=== PATIENT | male | born 1950 | race Caucasian/White ===

== ENCOUNTER 2023-03-24 07:40 | Emergency (ER) | payer MEDICARE, BC, SELFPAY ==
[2023-03-24] VITALS (17 sets, daily range): BP systolic 103–119; BP diastolic 66–86; PULSE 45–62; RESP 10–23; TEMP 36.6; O2SAT 84–100
--- NOTE | 2023-03-24 08:18 | DI.CT_ITS ---
Exam(s) CT ABDOMEN PELVIS W EXAM: CT ABDOMEN PELVIS W CLINICAL HISTORY: LLQ and suprapubic abd pain and tenderness TECHNIQUE: Imaging Protocol: Axial computed tomography images with coronal and sagittal reformatted images were created and reviewed CONTRAST MATERIAL: Intravenous: Omnipaque 350 Contrast volume:97 mL Oral: Yes COMPARISON: No exams were available for comparison FINDINGS: ABDOMEN: Lung Bases: The distal wires of a cardiac pacing device are seen. There is plate atelectasis in the lung bases. Liver: Normal density. No measurable mass. Portal, Superior Mesenteric, and Splenic Veins: Unremarkable. Gallbladder and Biliary Tract: No radiodense calculus or dilation. Pancreas: Normal density, no abnormal calcifications or inflammatory process. There is a 1 cm hyperde nse lesion in the tail of the pancreas. Spleen: Normal. Adrenals: No masses seen. Kidneys: Normal size, contour and axis. No radiodense stones or obstructive uropathy. No masses seen. Abdominal Aorta: Abdominal portion non-dilated. Atherosclerosis. Bowel: There is diverticulosis in the colon. There is bowel wall thickening and pericolonic inflamma tion in the sigmoid colon consistent with acute diverticulitis. No abscess or free air. There is no evidence of bowel obstruction. There is no evidence of appendicitis. The remainder of the bowel is unremarkable. Peritoneal Cavity: There is a trace amount of free fluid in the pelvis. No free air. Lymph Nodes: Within normal limits. Bones: Postsurgical changes are seen in the lower lumbar spine. Age-appropriate degenerative changes are seen in the lumbar spine. Grade 1 anterolisthesis of L4 on L5. Soft Tissues: There is a small fat containing umbilical hernia. PELVIS: Bladder: Symmetric distention, no gross wall thickening. Reproductive Organs: Unremarkable as visualized. Lymph Nodes: Within normal limits. Bones: Within normal limits for the patient's age. IMPRESSION: 1. Sigmoid diverticulitis without evidence of abscess or free air. 2. Indeterminate 1 cm hyperdensity in the tail of the pancreas. Nonemergent/outpatient CT or MRI of the pancreas is recommended for further evaluation. Unexpected findings RADIATION DOSE DELIVERED: 942.64mGy.cm Total DLP DATA REPOSITORY: All CT scans at this facility are submitted to the National Radiology Data Registry (NRDR) Dose Index Registry (DIR) with the [employer] ([employer]). RADIATION OPTIMIZATION: All CT scans at this facility use at least one of these dose optimization te chniques: automated exposure control; mA and/or kV adjustment per patient size (includes targeted exa ms where dose is matched to clinical indication); or iterative reconstruction.
[2023-03-24] MEDS: Omnipaque 350 MG/ML 50 ML BTL PO (08:27)
[2023-03-24] MEDS: Breeza Beverage 473 ML BTL 946 ML PO (08:28)
[2023-03-24 08:30] LABS: Abs Immature Grans 0.02 10^3/uL (0.0-0.06); Absolute Basophil Count 0.04 10^3/uL (0.0-0.2); Absolute Eosinophil Count 0.09 10^3/uL (0.0-0.7); Absolute Lymphocyte Count 0.69 10^3/uL (1.2-3.4); Absolute Monocyte Count 0.61 10^3/uL (0.1-0.8); Absolute Neutrophil Count 5.94 10^3/uL (1.2-6.7); Basophils % 0.5; Eosinophils % 1.2; HCT 41.4 % (40.0-50.0); HGB 13.7 g/dL (13.5-17.5); Immature Grans % 0.3; Lymphocytes % 9.3; MCH 32.8 pg (27.0-33.0); MCHC 33.1 % (32.0-36.0); MCV 99 fL (80-95); MPV 9.5 fL (8.0-11.0); Monocytes % 8.3; Neutrophils % 80.4; Platelet Count 189 10^3/uL (130-400); RBC 4.18 10^6/uL (4.36-5.78); RDW 12.9 % (11.8-14.1); WBC 7.39 10^3/uL (4.4-10.8)
[2023-03-24 08:31] LABS: Bilirubin Negative (Negative); Blood Trace-intact (Negative); Clarity Clear (Clear); Glucose Negative (Negative); Ketones Negative (Negative); Leukocyte Esterase Negative (Negative); Nitrite Negative (Negative); Specific Gravity 1.025 (1.005-1.025); Urobilinogen 0.2 mg/dL (Up to 0.2)
[2023-03-24 08:40] LABS: Bacteria Negative HPF (Negative); C & S Indicated? No; Casts Negative LPF (Negative); Crystals Negative HPF (Negative); Epithelial Cells Few HPF (Negative); Mucus Trace (Negative); RBC 0-2 HPF (0-2); WBC 0-2 HPF (0-5)
[2023-03-24 08:49] LABS: ALT 25 U/L (16-63); AST 23 U/L (15-37); Alkaline Phosphatase 71 U/L (46-116); Anion Gap 6.9 mmol/L (3-11); BUN 25 mg/dL (7-18); Bilirubin, Total 1.1 mg/dL (0.2-1.0); CO2 27.1 mmol/L (21.0-32.0); Chloride 106 mmol/L (98-107); Estimated GFR 78.98 (mL/min/1.73m2); Glucose 117 mg/dL (74-106); Lipase 36 U/L (16-77); Potassium 4.3 mmol/L (3.5-5.1); Sodium 140 mmol/L (136-145); Total Protein 7.3 g/dL (6.4-8.2)
[2023-03-24 08:51] LABS: Troponin I 97 ng/L (<or=60)
--- NOTE | 2023-03-24 09:00 | RT.EKG_ITS ---
APPROVED REPORT Exam: Resting ECG Reason for Exam: abdominal pain Patient Location: E HR:55 bpm ECG Measurements Heart Rate 55 AXIS KS [id number] P [id number] QRSd 117 QRS 37 QT 440 T 112 QTc 420 Conclusion Atrial fibrillation...V-rate 50- 63, irreg A-activity Nonspecific intraventricular conduction delay...QRSd >115mS, not LBBB/RBBB Low voltage, extremity leads...all extremity leads <0.5mV Abnrm T, consider ischemia, anterolateral lds...T <-0.20mV, I aVL V2-V6
--- NOTE | 2023-03-24 09:09 | W.ED.GENAD ---
Discharge Plan Disposition Patient Disposition: Home Discharge Details Clinical Impression: Acute diverticulitis, Elevated troponin, Pancreatic lesion, T wave inversion in EKG Primary Care Provider: Unknown,Unknown ED Provider: Mathew Mccollum Home Meds and New Rx's Prescriptions: Continued Eliquis 5 mg Tablet 5 mg PO BID allopurinol 300 mg Tablet 300 mg PO DAILY metoprolol succinate 25 mg Tablet Extended Release 24 Hr 25 mg PO BID atorvastatin 20 mg Tablet 20 mg Discharge Instructions Instructions: Diverticulitis (ED) Additional Instructions: CT of your abdomen pelvis revealed uncomplicated sigmoid diverticulitis. Also noted was an indeterminate 1 cm hyperdensity of the distal pancreatic body/tail. It is recommended you have nonemergent outpatient CT or MRI of the pancreas and further diagnostic work-up. Please discuss this with your primary care physician. Call tomorrow to arrange follow-up. Maintain bowel rest over the next 2 days. Maintain clear liquid diet today. You may advance your diet slowly tomorrow to soft bland foods like rice. Advance slowly thereafter. Please take acetaminophen (tylenol) - 650mg every 6 hours by mouth as needed for pain. Please contact your primary care physician to arrange follow-up. You should be reassessed in a couple days to ensure symptoms are improving. Return to the ER immediately for any worsening or new concerning symptoms. Medical Decision Making 912 -- 72yo male with history of right inguinal hernia status post mesh repair, here with 2 to 3 weeks of intermittent lower abdominal cramping and now more significant lower abdominal discomfort over the past 2 days with associated small, soft bowel movements. Patient has some tenderness in his lower left abdomen. No peritoneal findings. Patient notes that he has had colonoscopy in the past 2 years that was relatively unremarkable. Concern for potential diverticulitis versus constipation versus colitis. Plan to obtain CT of the abdomen pelvis to assess for acute surgical process. Screening labs were sent and reviewed. No leukocytosis. Of note, patient does have mildly elevated troponin of 97. Unclear etiology has had no chest pain. 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 He notes he is frequently in atrial fibrillation. Plan to obtain EKG and trend troponin. -- EKG was reviewed and interpreted by me: Please see report, no STEMI, concern for T wave inversions laterally in V4 to V6, atrial fibrillation noted. Attempting to obtain outside hospital EKG for comparison as no old available in system. [id number]??still attempting to identify old EKG. CT of the abdomen pelvis was interpreted by radiology:FINDINGS: Liver: Normal. No mass. Gallbladder and bile ducts: Normal. No calcified stones. No ductal dilation. Pancreas: At the distal pancreatic body/tail there is a 1 cm round hyperattenuating focus (axial series 4 image 20, coronal image 51). Spleen: Normal. No splenomegaly. Adrenal glands: Normal. No mass. Kidneys and ureters: Normal. No hydronephrosis. Stomach and bowel: High-density enteric contrast extends from the stomach through the hepatic flexure. No small bowel obstruction. Sigmoid diverticulitis. No pericolonic fluid collection. No free air. Appendix: No evidence of appendicitis. Intraperitoneal space:? No free air.? No organized fluid collections. Vasculature: Atherosclerosis. No abdominal aortic aneurysm.? Fusiform ectasia of the common iliac arteries up to 1.8 cm. Lymph nodes: No enlarged lymph nodes. Urinary bladder: Unremarkable as visualized. Reproductive: Unremarkable as visualized. Bones/joints: No acute fracture.? Status post L4-L5 posterior fusion.? There is grade 1 anterolisthesis of L4 on L5.? Degenerative changes of the hips. Soft tissues:? Small fat containing periumbilical and left inguinal hernias. IMPRESSION: 1. ? Uncomplicated sigmoid diverticulitis. 2. ? Indeterminate 1 cm hyperdensity of the distal pancreatic body/tail. Recommend nonemergent/outpatient CT or MRI of the pancreas. --Results provided to patient and discussed need for outpatient followup. We discussed conservative management versus antibiotic treatment and plan for bowel rest and conservative management as part of a shared decision-making treatment plan. I called and spoke with the patient's dispensary attendant on-call, Dr. Valentino, I discussed ED presentation and course including diagnostics. We discussed elevated troponin and delta troponin as well as EKG findings. He was able to compare EKG findings today to prior EKG and do the patient well. He noted that slightly elevated troponins expected given patient's history. He does not feel further ACS work-up is warranted. He recommends continued treatment of GI illness. Treatment plan was reviewed with the patient and his who are in agreement. Disposition decision was made weighing the risks and benefits of hospitalization versus outpatient treatment, the risk for further decompensation, and the patient's wishes. The patient was stable and requested discharge. Prior to discharge, my usual and customary return precautions were reviewed with the patient - this included follow-up instructions and reason to return to the emergency department if condition worsens, does not improve as expected, or other new concerns arise. Lab Data Lab results reviewed: Yes I reviewed the patient's lab results. Labs: Laboratory Tests Range/Units 03/24/23 03/24/23 03/24/23 08:21 08:21 08:24 WBC (4.4-10.8) 10^3/uL 7.39 RBC (4.36-5.78) 10^6/uL 4.18 L Hgb (13.5-17.5) g/dL 13.7 Hct (40.0-50.0) % 41.4 MCV (80-95) fL 99 H MCH (27.0-33.0) pg 32.8 MCHC (32.0-36.0) % 33.1 RDW (11.8-14.1) % 12.9 Plt Count (130-400) 10^3/uL 189 MPV (8.0-11.0) fL 9.5 Immature Gran % 0.3 Neutrophils % 80.4 Lymphocytes % 9.3 Monocytes % 8.3 Eosinophils % 1.2 Basophils % 0.5 Nucleated RBC % (0.0-0.3) % 0.0 Absolute Neutrophils (1.2-6.7) 10^3/uL 5.94 Absolute Lymphocytes (1.2-3.4) 10^3/uL 0.69 L Absolute Monocytes (0.1-0.8) 10^3/uL 0.61 Absolute Eosinophils (0.0-0.7) 10^3/uL 0.09 Absolute Basophils (0.0-0.2) 10^3/uL 0.04 Sodium (136-145) mmol/L 140 Potassium (3.5-5.1) mmol/L 4.3 Chloride (98-107) mmol/L 106 Carbon Dioxide (21.0-32.0) mmol/L 27.1 Anion Gap (3-11) mmol/L 6.9 BUN (7-18) mg/dL 25 H Creatinine (0.70-1.30) mg/dL 1.0 Est GFR (CKD-EPI 2020) (mL/min/1.73m2) 78.98 Glucose (74-106) mg/dL 117 H Calcium (8.5-10.1) mg/dL 9.0 Total Bilirubin (0.2-1.0) mg/dL 1.1 H AST (15-37) U/L 23 ALT (16-63) U/L 25 Alkaline Phosphatase (46-116) U/L 71 Troponin I (<or=60) ng/L 97 H* Total Protein (6.4-8.2) g/dL 7.3 Albumin (3.4-5.0) g/dL 4.0 Lipase (16-77) U/L 36 Urine Color (Yellow) Yellow Urine Clarity (Clear) Clear Urine pH (5-8) 5.0 Ur Specific [place] (1.005-1.025) 1.025 Urine Protein (Negative) mg/dL Negative Urine Ketones (Negative) mg/dL Negative Urine Blood (Negative) Trace-intact H Urine Nitrite (Negative) Negative Urine Bilirubin (Negative) Negative Urine Urobilinogen (Up to 0.2) mg/dL 0.2 Ur Leukocyte Esterase (Negative) Negative Urine RBC (0-2) HPF 0-2 Urine WBC (0-5) HPF 0-2 Ur Epithelial Cells (Negative) HPF Few Urine Crystals (Negative) HPF Negative Urine Bacteria (Negative) HPF Negative Urine Casts (Negative) LPF Negative Urine Mucus (Negative) Trace Ur Culture Indicated? No Urine Glucose (Negative) mg/dL Negative Range/Units 03/24/23 11:06 WBC (4.4-10.8) 10^3/uL RBC (4.36-5.78) 10^6/uL Hgb (13.5-17.5) g/dL Hct (40.0-50.0) % MCV (80-95) fL MCH (27.0-33.0) pg MCHC (32.0-36.0) % RDW (11.8-14.1) % Plt Count (130-400) 10^3/uL MPV (8.0-11.0) fL Immature Gran % Neutrophils % Lymphocytes % Monocytes % Eosinophils % Basophils % Nucleated RBC % (0.0-0.3) % Absolute Neutrophils (1.2-6.7) 10^3/uL Absolute Lymphocytes (1.2-3.4) 10^3/uL Absolute Monocytes (0.1-0.8) 10^3/uL Absolute Eosinophils (0.0-0.7) 10^3/uL Absolute Basophils (0.0-0.2) 10^3/uL Sodium (136-145) mmol/L Potassium (3.5-5.1) mmol/L Chloride (98-107) mmol/L Carbon Dioxide (21.0-32.0) mmol/L Anion Gap (3-11) mmol/L BUN (7-18) mg/dL Creatinine (0.70-1.30) mg/dL Est GFR (CKD-EPI 2020) (mL/min/1.73m2) Glucose (74-106) mg/dL Calcium (8.5-10.1) mg/dL Total Bilirubin (0.2-1.0) mg/dL AST (15-37) U/L ALT (16-63) U/L Alkaline Phosphatase (46-116) U/L Troponin I (<or=60) ng/L 81 H* Total Protein (6.4-8.2) g/dL Albumin (3.4-5.0) g/dL Lipase (16-77) U/L Urine Color (Yellow) Urine Clarity (Clear) Urine pH (5-8) Ur Specific [place] (1.005-1.025) Urine Protein (Negative) mg/dL Urine Ketones (Negative) mg/dL Urine Blood (Negative) Urine Nitrite (Negative) Urine Bilirubin (Negative) Urine Urobilinogen (Up to 0.2) mg/dL Ur Leukocyte Esterase (Negative) Urine RBC (0-2) HPF Urine WBC (0-5) HPF Ur Epithelial Cells (Negative) HPF Urine Crystals (Negative) HPF Urine Bacteria (Negative) HPF Urine Casts (Negative) LPF Urine Mucus (Negative) Ur Culture Indicated? Urine Glucose (Negative) mg/dL HPI General Mode of arrival: ambulatory. Date/Time Provider Initiated Documentation: 03/24/23 07:57. Limitations to Documentation: no limitations. Information obtained by: patient. HPI Narrative: 72-year-old male with history of right inguinal hernia status post repair with mesh, here with left lower abdominal pain over the past 2 days. Patient notes discomfort in his left lower abdomen that waxes and wanes. Currently mild. He does note some intermittent cramping in his lower abdomen over the past 2 weeks relieved with bowel movements. Bowel movements over the past couple days have been small, soft, brown. No bloody bowel movements. No testicular pain or swelling. No upper abdominal or chest pain. No shortness of breath. No fever. Related Data Home Medications Medication Instructions Recorded Confirmed allopurinol 300 mg tablet 300 mg PO DAILY 03/24/23 03/24/23 apixaban 5 mg tablet (Eliquis) 5 mg PO BID 03/24/23 03/24/23 atorvastatin 20 mg tablet 20 mg 03/24/23 metoprolol succinate 25 mg 25 mg PO BID 03/24/23 03/24/23 tablet,extended release 24 hr Allergies Allergy/AdvReac Type Severity Reaction Status Date / Time No Known Allergies Allergy Unverified 03/24/23 07:51 General Stated Complaint: Abd Prob GIACOMO: 3 Review of Systems All systems reviewed & are unremarkable except as noted in HPI and below Constitutional Constitutional: Denies fever(s) Gastrointestinal Gastrointestinal: Reports as per HPI and Reports abdominal pain Genitourinary Genitourinary: Denies hematuria, Denies scrotal swelling, Denies testicular pain and Denies urinary frequency PFSH All Active Problems (Updated 03/24/23 @ 12:39 by Mathew Mccollum MD) Acute diverticulitis (Acute) Elevated troponin (Acute) Pancreatic lesion (Acute) T wave inversion in EKG (Acute) Social History Smoking/Tobacco Use Status: Never Smoking risk assessment performed?: Yes Alcohol Intake: current Alcohol Intake frequency: 0-2 drinks per day Alcohol type: beer Drug use: Never Substance use type: does not use Do you feel safe at home: Yes Do you feel safe in your relationship?: Yes Exam Const General: cooperative and no acute distress HENMT Mouth: moist mucous membranes Eyes Conjunctivae: normal conjunctivae Sclera: normal sclerae Neck Neck: trachea midline and supple Resp Auscultation: clear to auscultation bilaterally, no rales, no rhonchi and no wheezes Cardio Rate: regular rate and not tachycardic Rhythm: regular rhythm GI Palpation: soft, not firm, no guarding, no masses, not rigid and tender in the LLQ and suprapubicly Auscultation: normal bowel sounds Skin General skin exam: no rashes or lesions noted Neuro General: patient alert, patient awake, patient oriented x3 and tone normal Extrem General: no edema Psych Appearance: grossly normal Mental Status: mental status grossly normal Course Vital Signs Vital signs: Vital Signs Temperature 36.6 C 03/24/23 07:47 Pulse 54 L 03/24/23 07:47 Respiratory Rate 14 03/24/23 07:47 Blood Pressure 116/77 03/24/23 07:47 Pulse Oximetry 100 03/24/23 07:47 Temperature 36.6 C 03/24/23 07:47 Temperature Source Oral 03/24/23 07:47 Pulse 54 L 03/24/23 07:47 Respiratory Rate 14 03/24/23 07:47 Respiratory Effort Normal, Non-Labored 03/24/23 08:27 Blood Pressure 116/77 03/24/23 07:47 Blood Pressure Position Sitting 03/24/23 07:47 Pulse Oximetry 100 03/24/23 07:47 Oxygen Delivery Method Room Air 03/24/23 07:47 Oxygen Flow Rate 0 03/24/23 07:47 Pain Level 3 03/24/23 07:47 Lab/Test Results Lab/Test Results: Laboratory Tests Range/Units 03/24/23 03/24/23 03/24/23 08:21 08:21 08:24 WBC (4.4-10.8) 10^3/uL 7.39 RBC (4.36-5.78) 10^6/uL 4.18 L Hgb (13.5-17.5) g/dL 13.7 Hct (40.0-50.0) % 41.4 MCV (80-95) fL 99 H MCH (27.0-33.0) pg 32.8 MCHC (32.0-36.0) % 33.1 RDW (11.8-14.1) % 12.9 Plt Count (130-400) 10^3/uL 189 MPV (8.0-11.0) fL 9.5 Immature Gran % 0.3 Neutrophils % 80.4 Lymphocytes % 9.3 Monocytes % 8.3 Eosinophils % 1.2 Basophils % 0.5 Nucleated RBC % (0.0-0.3) % 0.0 Absolute Neutrophils (1.2-6.7) 10^3/uL 5.94 Absolute Lymphocytes (1.2-3.4) 10^3/uL 0.69 L Absolute Monocytes (0.1-0.8) 10^3/uL 0.61 Absolute Eosinophils (0.0-0.7) 10^3/uL 0.09 Absolute Basophils (0.0-0.2) 10^3/uL 0.04 Sodium (136-145) mmol/L 140 Potassium (3.5-5.1) mmol/L 4.3 Chloride (98-107) mmol/L 106 Carbon Dioxide (21.0-32.0) mmol/L 27.1 Anion Gap (3-11) mmol/L 6.9 BUN (7-18) mg/dL 25 H Creatinine (0.70-1.30) mg/dL 1.0 Est GFR (CKD-EPI 2020) (mL/min/1.73m2) 78.98 Glucose (74-106) mg/dL 117 H Calcium (8.5-10.1) mg/dL 9.0 Total Bilirubin (0.2-1.0) mg/dL 1.1 H AST (15-37) U/L 23 ALT (16-63) U/L 25 Alkaline Phosphatase (46-116) U/L 71 Troponin I (<or=60) ng/L 97 H* Total Protein (6.4-8.2) g/dL 7.3 Albumin (3.4-5.0) g/dL 4.0 Lipase (16-77) U/L 36 Urine Color (Yellow) Yellow Urine Clarity (Clear) Clear Urine pH (5-8) 5.0 Ur Specific [place] (1.005-1.025) 1.025 Urine Protein (Negative) mg/dL Negative Urine Ketones (Negative) mg/dL Negative Urine Blood (Negative) Trace-intact H Urine Nitrite (Negative) Negative Urine Bilirubin (Negative) Negative Urine Urobilinogen (Up to 0.2) mg/dL 0.2 Ur Leukocyte Esterase (Negative) Negative Urine RBC (0-2) HPF 0-2 Urine WBC (0-5) HPF 0-2 Ur Epithelial Cells (Negative) HPF Few Urine Crystals (Negative) HPF Negative Urine Bacteria (Negative) HPF Negative Urine Casts (Negative) LPF Negative Urine Mucus (Negative) Trace Ur Culture Indicated? No Urine Glucose (Negative) mg/dL Negative PAWSS Have you Been Recently Intoxicated or Drunk Within the Last 30 days?: No Have you Ever Experienced Previous Episodes of Alcohol Withdrawal?: No Have you ever Experienced Withdrawal Seizures?: No Have you ever Experienced Delirium Tremens(DT)s?: No Have you ever undergone Alcohol Rehabilitation Treatment (i.e, inpt ot outpatient treatment programs)?: No Have you ever Experienced Blackouts?: No Have you ever Combined Alcohol with other Downers within the last 90 days?: No Have you ever Combined Alcohol with any other Substance of Abuse during the last 90 days?: No Positive Blood Alcohol level on Presentation? [PCS.BAL]: No Evidence of Increased Autonomic Activity (i.e. HR>120, tremor, sweating, agitation, nausea)?: No Result: 0
[2023-03-24] MEDS: Normal Saline Flush 10 ML SYR IVP (10:08)
[2023-03-24] MEDS: Omnipaque 350 MG/ML 100 ML BTL IJ (10:10)
[2023-03-24] MEDS: Normal Saline - Diluent 50 ML VIAL IJ (10:10)
--- NOTE | 2023-03-24 10:41 | DI.VRAD_ITS ---
Addendum created by Yasmeen Moffett MD on 03/24/2023 10:45:12 AM EDT: The findings were verbally communicated via telephone conference with Mathew Hanson at 10:44 AM EDT on 03/24/2023. The findings were acknowledged and understood. Initial report created on 03/24/2023 10:40:44 AM EDT: PROCEDURE INFORMATION: Exam: CT Abdomen And Pelvis With Contrast Exam date and time: 03/24/2023 10:16 AM Age: 72 years old Clinical indication: Other: Llq and suprapubic abd pain and tenderness TECHNIQUE: Imaging protocol: Computed tomography of the abdomen and pelvis with contrast. Radiation optimization: All CT scans at this facility use at least one of these dose optimization techniques: automated exposure control; mA and/or kV adjustment per patient size (includes targeted exams where dose is matched to clinical indication); or iterative reconstruction. Contrast material: OMNIPAQUE 350; Contrast volume: 97 ml; Contrast route: INTRAVENOUS (IV); COMPARISON: No relevant prior studies available. FINDINGS: Liver: Normal. No mass. Gallbladder and bile ducts: Normal. No calcified stones. No ductal dilation. Pancreas: At the distal pancreatic body/tail there is a 1 cm round hyperattenuating focus (axial series 4 image 20, coronal image 51). Spleen: Normal. No splenomegaly. Adrenal glands: Normal. No mass. Kidneys and ureters: Normal. No hydronephrosis. Stomach and bowel: High-density enteric contrast extends from the stomach through the hepatic flexure. No small bowel obstruction. Sigmoid diverticulitis. No pericolonic fluid collection. No free air. Appendix: No evidence of appendicitis. Intraperitoneal space: No free air. No organized fluid collections. Vasculature: Atherosclerosis. No abdominal aortic aneurysm. Fusiform ectasia of the common iliac arteries up to 1.8 cm. Lymph nodes: No enlarged lymph nodes. Urinary bladder: Unremarkable as visualized. Reproductive: Unremarkable as visualized. Bones/joints: No acute fracture. Status post L4-L5 posterior fusion. There is grade 1 anterolisthesis of L4 on L5. Degenerative changes of the hips. Soft tissues: Small fat containing periumbilical and left inguinal hernias. IMPRESSION: 1. Uncomplicated sigmoid diverticulitis. 2. Indeterminate 1 cm hyperdensity of the distal pancreatic body/tail. Recommend nonemergent/outpatient CT or MRI of the pancreas. Dictated and Authenticated by: Yasmeen Moffett MD. Ordering:RADAMES Carmona MD
[2023-03-24 11:28] LABS: Troponin I 81 ng/L (<or=60)
--- NOTE | 2023-03-24 12:39 | NUR.NOTE ---
Nursing Note: Patient's [facility] Breaster from [place] - Dr. Fabrice Valentino [phone]
[2023-03-24] MEDS: Acetaminophen 325 MG TAB 650 MG PO (13:54)
== END 2023-03-24 13:55 | disposition home or self-care (01) ==
PROVIDERS: Emergency Provider Student in an Organized Health Care Education/Training Program
DX: K57.32 Diverticulitis of large intestine without perforation or abscess without bleeding (principal); R77.8 Other specified abnormalities of plasma proteins; K86.9 Disease of pancreas, unspecified; R94.31 Abnormal electrocardiogram [ECG] [EKG]
CPT/HCPCS: 36415; 80053; 83690; 93005; 99285; 74177; 81003; 81015; 84484; 85025; 93010; 99284; J3490; Q9967